=== PATIENT | female | born 1985 | race Caucasian/White ===

== ENCOUNTER → 2022-05-20 | Day surgery (SDC) | payer OTHER | LOC: CSHULT 09:16 | PROVIDERS: ATTEND Nurse Practitioner Family | PROC: 0HB5XZX Excision of Chest Skin, External Approach, Diagnostic (ICD-10-PCS; principal; 2022-05-20) | DX: D24.1 Benign neoplasm of right breast (principal); Z20.822 Contact with and (suspected) exposure to COVID-19; J45.909 Unspecified asthma, uncomplicated; F41.9 Anxiety disorder, unspecified; F12.10 Cannabis abuse, uncomplicated | CPT/HCPCS: 19083; 88305 ==